=== PATIENT | female | born 1980 | race African-American/Black ===

== ENCOUNTER 2016-05-05 11:05 | Emergency (ER) | payer OTHER, MEDICAID ==
[~2016-05-05 11:05] MED LIST: PREN1MIS10 PO
[2016-05-05 11:39] LABS: HEMATOCRIT 34.9 % (35.0-46.0); MEAN CELL VOLUME 70.3 FL (80.0-100.0); MEAN CORPUSCULAR HEMOGLOBIN 22.8 PG (27.0-34.0); MEAN CORPUSCULAR HGB CONC 32.5 % (32.0-36.0); PLATELET COUNT 392 TH/MM3 (150-450); RED BLOOD COUNT 4.96 MIL/MM3 (4.00-5.30); RED CELL DISTRIBUTION WIDTH 17.2 % (11.6-17.2); WHITE BLOOD COUNT 10.2 TH/MM3 (4.0-11.0)
[2016-05-05 11:43] LABS: REVIEW FLAG FINAL
[2016-05-05 11:53] LABS: BACTERIA, URINE MOD /hpf; BLOOD, URINE NEG (NEG); GLUCOSE,URINE NEG (NEG); KETONE, URINE TRACE mg/dL (NEG); MUCUS URINE FEW /lpf (OCC); NITRITE,URINE NEG (NEG); PH, URINE 6.5 (5.0-8.5); RENAL EPITHELIAL CELLS <1 /hpf; SQUAMOUS EPITHELIAL CELL URINE 8 /hpf (0-5); TRANSITIONAL EPI CELLS, URINE <1 /hpf; URINE COLOR YELLOW (YELLW/STRAW)
[2016-05-05 11:55] LABS: COMMENT (UR) CULTURE INDICATED; CULTURE IF INDICATED CULTURE INDICATED
[2016-05-05 11:58] LABS: ALT (GPT) 31 U/L (10-53); ANION GAP 8 MEQ/L (5-15); AST (GOT) 17 U/L (15-37); BICARBONATE 22.7 MEQ/L (21.0-32.0); BLOOD UREA NITROGEN 6 MG/DL (7-18); CHLORIDE 107 MEQ/L (98-107); GLOMERULAR FILTRATION RATE 177 ML/MIN (>89); POTASSIUM 3.8 MEQ/L (3.5-5.1); SODIUM (NA) 138 MEQ/L (136-145); URIC ACID 2.2 MG/DL (2.6-6.0)
[2016-05-05 11:59] LABS: ALKALINE PHOSPHATASE 80 U/L (45-117); TOTAL BILIRUBIN ADULT 0.2 MG/DL (0.2-1.0)
[2016-05-05] MEDS ORDERED: MACR100C2 PO (13:05)
--- NOTE | 2016-05-05 13:06 | PD ---
HPI Chief Complaint Ratio sent over from Dr. Acevedo's office for PIH evaluation Date Seen: May 05, 2016 Travel History International Travel<30 Days: No Contact w/Intl Traveler<30Days: No History of Present Illness HPI Patient is a 35 week intrauterine followed by Dr. Acevedo for care presents as a referral from his office for evaluation of elevated blood pressure. Patient denies any problems at this time no bleeding leakage of fluid or contractions. She has had elevated blood pressures over the last week or 2 recently had a 24-hour urine protein was within normal limits. She denies visual changes blurry vision spots of her eyes she did have a mild headache yesterday but that went away. She denies right upper quadrant pain significant swelling her baby is active and heart rate tracing is reactive no contractions seen Para: 0 : 1 History Past Medical History Medical History: Denies Significant Hx Social History Alcohol Use: No Tobacco Use: No Substance Abuse: No Allergies-Medications (Allergen,Severity, Reaction): Uncoded Allergies: crawfish (Allergy, Severe, Anaphylaxis, 12/21/14) pollen (Allergy, Mild, ITCH, 12/05/12) Home Meds Reported Medications Vit W/ Ferrous Fumara (One A Day Womens 28-0.8 & 223 mg)1 Mis Mis1 Tab PO DAILY 04/02/16 Review of Systems General / Constitutional: No: Fever, Weight Gain, Chills, Other Physical Exam Narrative GENERAL: Well-nourished, well-developed patient. SKIN: Warm and dry. HEAD: Normocephalic and atraumatic. EYES: No scleral icterus. No injection or drainage. ENT: No nasal drainage noted. Mucous membranes pink. Airway patent. NECK: Supple, trachea midline. No JVD. CARDIOVASCULAR: Regular rate and rhythm without murmurs, gallops, or rubs. RESPIRATORY: Breath sounds equal bilaterally. No accessory muscle use. BREASTS: Bilateral exam showed no masses , no retractions, no nipple discharge. ABDOMEN/GI: Abdomen soft, non-tender, bowel sounds present, no rebound, no guarding Gravid to [36-] weeks size Fundal Height: [36 cm-] GENITOURINARY: External Genitalia: intact and normal in appearance BUS glands: [-] Cervix: [-]not checked Dilatation: [-] Effacement: [-] Station: [-] Presentation: [-] Membranes: [intact ] Uterine Contractions: [-none] FHT's: Category: [1-] Baseline: [-144] Reactive: [-yes] Variability: [-mod] Decels: [none-] EXTREMITIES: No cyanosis or edema. BACK: Nontender without obvious deformity. No CVA tenderness. NEUROLOGICAL: Awake and alert. Motor and sensory grossly within normal limits. Five out of 5 muscle strength in all muscle groups. Normal speech. Data Data Orders Vital Signs (Adult) .ON ADMISSION (05/05/16 11:21) ^ Labor Status (05/05/16 11:21) Urinalysis - C+S If Indicated (05/05/16 11:21) Cbc No Diff, Includes Plts (05/05/16 11:21) Comprehensive Metabolic Panel (05/05/16 11:21) Uric Acid (05/05/16 11:21) Urine Culture (05/05/16 11:20) Labs Laboratory Tests Test 05/05/16 11:20 White Blood Count 10.2 Red Blood Count 4.96 Hemoglobin 11.3 Hematocrit 34.9 Mean Corpuscular Volume 70.3 Mean Corpuscular Hemoglobin 22.8 Mean Corpuscular Hemoglobin 32.5 Concent Red Cell Distribution Width 17.2 Platelet Count 392 Mean Platelet Volume 8.7 Urine Color YELLOW Urine Turbidity HAZY Urine pH 6.5 Urine Specific [place] 1.015 Urine Protein 30 Urine Glucose (UA) NEG Urine Ketones TRACE Urine Occult Blood NEG Urine Nitrite NEG Urine Bilirubin NEG Urine Urobilinogen LESS THAN 2.0 Urine Leukocyte Esterase LARGE Urine RBC 4 Urine WBC 7 Urine Squamous Epithelial 8 Cells Urine Transitional Epithelial <1 Cells Urine Renal Epithelial Cells <1 Urine Bacteria MOD Urine Mucus FEW Microscopic Urinalysis Comment CULTURE INDICATED Sodium Level 138 Potassium Level 3.8 Chloride Level 107 Carbon Dioxide Level 22.7 Anion Gap 8 Blood Urea Nitrogen 6 Creatinine 0.48 Estimat Glomerular Filtration 177 Rate Random Glucose 106 Uric Acid 2.2 Calcium Level 8.8 Total Bilirubin 0.2 Aspartate Amino Transf 17 (AST/SGOT) Alanine Aminotransferase 31 (ALT/SGPT) Alkaline Phosphatase 80 Total Protein 7.6 Albumin 3.0 Date/Time Procedure Status Source Growth 05/05/16 11:20 Urine Culture Received Urine Clean Catch Pending [facility] Medical Record Reviewed: No Interpretation(s) is 35 week intrauterine sent over from Dr Guadarrama office for PIH evaluation. They had several pressures in the office that were elevated we do not know that number however here on OB ED her blood pressures been within normal limits in the 130/70-80 range. Urinalysis shows only 1+ protein. Also the urine showed high leukocyte esterase with white cells and bacteria, this consistent with low-grade UTI. PIH lab all within normal limits. NST is reactive Plan this [facility] follow-up Dr. Acevedo for repeat evaluation this week, plan for patient to begin Macrobid 100 twice a day for a week due to urinalysis findings, she is to increase oral fluids and decrease salt intake Diagnosis Diagnosis: Primary Impression: Gestational hypertension w/o significant proteinuria in 3rdtrimester Additional Impression: UTI (urinary tract infection) during Disposition: 01 DISCHARGE HOME Condition: Stable Scripts Nitrofurantoin Monohydrate Macrocrystals (Macrobid)100 Mg [id number] Mg PO BID #14 CAP Ref 0 Prov:Marino Damon II, MD 05/05/16 Marino Damon II, MD May 05, 2016 13:06
== END 2016-05-05 13:21 | disposition home or self-care (01) ==
LOC: HOBED 11:05
DX: O13.3 Gestational [pregnancy-induced] hypertension without significant proteinuria, third trimester (principal); Z3A.35 35 weeks gestation of pregnancy
CPT/HCPCS: 36415; 59025; 80053; 81001; 84550; 85027; 87086

== ENCOUNTER 2016-05-12 10:32 | Emergency (ER) | payer OTHER, MEDICAID ==
[~2016-05-12] VITALS: Ht 167.6 cm; Wt 122.9 kg
[2016-05-12] VITALS (7 sets, daily range): BP systolic 133–158; BP diastolic 77–94; PULSE 87–104; RESP 18; TEMP 98.6
[~2016-05-12 10:32] MED LIST changes: +MACR100C2 PO
--- NOTE | 2016-05-12 11:51 | PD ---
HPI Chief Complaint Increased blood pressure Date Seen: May 12, 2016 Time Seen: 11:30 Travel History International Travel<30 Days: No Contact w/Intl Traveler<30Days: No Known Affected Area: No History of Present Illness HPI This is a 59-year-old at 36 weeks and 3 days of gestation, EDC 06/06/16, patient was seen in the office today and then sent to OB ED for evaluation of gestational hypertension. Patient with history of gestational hypertension and gestational diabetes, she is scheduled to be delivered at 37 weeks, today the patient denies headaches, visual disturbances, and epigastric pain. Blood pressure measurements in OB ED is 133/83, 142/83, 143/77. Patient recently had a 24-hour urine protein which was negative for preeclampsia. Patient reports presence of movements, denies contractions, vaginal bleeding, leakage of fluids. care is with Dr. Acevedo. course is significant for obesity, gestational hypertension, advanced maternal age and gestational diabetes. Para: 0 : 1 Miscarriage: 0 : 0 History Past Medical History Narrative Medical Obesity, gestational diabetes, gestational hypertension Obstetric History Obstetric History Primigravida Past Surgical History Narrative Surgical Denies Surgical History: No Previous Surgery Family History Narrative Family History Paternal grandmother with diabetes and hypertension. Maternal grandmother with bone cancer and multiple myeloma. Mother has hypertension. Social History Alcohol Use: No Tobacco Use: No Substance Abuse: No Allergies-Medications (Allergen,Severity, Reaction): Uncoded Allergies: crawfish (Allergy, Severe, Anaphylaxis, 12/21/14) pollen (Allergy, Mild, ITCH, 12/05/12) Home Meds Active Scripts Nitrofurantoin Monohydrate Macrocrystals (Macrobid)100 Mg [id number] Mg PO BID #14 CAP Ref 0 Prov:Marino Damon II, MD 05/05/16 Reported Medications Vit W/ Ferrous Fumara (One A Day Womens 28-0.8 & 223 mg)1 Mis Mis1 Tab PO DAILY 04/02/16 Review of Systems Except as stated in HPI: all other systems reviewed are Neg Cardiovascular: Other (increased blood pressure) Physical Exam Narrative GENERAL: Well-nourished, well-developed patient. SKIN: Warm and dry. HEAD: Normocephalic and atraumatic. EYES: No scleral icterus. No injection or drainage. ENT: No nasal drainage noted. Mucous membranes pink. Airway patent. NECK: Supple, trachea midline. No JVD. CARDIOVASCULAR: Regular rate and rhythm without murmurs, gallops, or rubs. RESPIRATORY: Breath sounds equal bilaterally. No accessory muscle use. BREASTS: Bilateral exam showed no masses , no retractions, no nipple discharge. ABDOMEN/GI: Abdomen soft, gravid, non-tender, bowel sounds present, no rebound, no guarding Gravid to 36 weeks size Fundal Height: 36 cm GENITOURINARY: External Genitalia: intact and normal in appearance BUS glands: Normal Cervix: Close, long, posterior Dilatation: Close Effacement: 30% Station: -3 Presentation: Cephalic Membranes: Intact Uterine Contractions: None FHT's: Category: one Baseline: 150 Reactive: Yes Variability: Moderate Decels: None EXTREMITIES: No cyanosis or edema. BACK: Nontender without obvious deformity. No CVA tenderness. NEUROLOGICAL: Awake and alert. Motor and sensory grossly within normal limits. Five out of 5 muscle strength in all muscle groups. Normal speech. Data Data Vital Signs Reviewed: Yes Orders Vital Signs (Adult) [id number] AWAKE (05/12/16 11:24) ^ Heart (05/12/16 11:24) Activity Oob Ad Loida (05/12/16 11:24) Complete Blood Count With Diff (05/12/16 11:24) Uric Acid (05/12/16 11:24) Urinalysis - C+S If Indicated (05/12/16 11:24) Comprehensive Metabolic Panel (05/12/16 11:24) Ldh Serum (05/12/16 11:24) Us Ob Bpp Wo Nst (05/12/16 ) MDM Diagnosis Diagnosis: Primary Impression: 36 weeks gestation of Additional Impression: Gestational hypertension w/o significant proteinuria in 3rdtrimester Disposition: 01 DISCHARGE HOME Condition: Stable Patient Instructions: Early Labor Signs (ED), Movement (ED), General Instructions, Preeclampsia (ED) Additional Instructions: Urinalysis shows protein is 30H, positive ketones, and presence of a white cell count consistent with urinary tract infection. We will give patient intravenous ceftriaxone and IV bolus, patient is given a jug and a prescription for 24-hour urine collection for protein and creatinine, she is instructed to return return to labor and delivery if she has headaches, visual disturbances, blurry vision, epigastric pain, contractions, cramping, leakage of fluids, vaginal bleeding, decreased movement. Drink plenty of fluids. Monitor kick counts. Keep office appointment as scheduled. Departure Forms: Tests/Procedures Bipin Rodriguez MD May 12, 2016 11:51
[2016-05-12 12:19] LABS: AUTOMATED NEUTROPHIL # 4.8 TH/MM3 (1.8-7.7); BASOPHIL # 0.1 TH/MM3 (0-0.2); BASOPHIL % 0.9 % (0.0-2.0); EOSINOPHIL % 0.3 % (0.0-4.0); HEMATOCRIT 35.6 % (35.0-46.0); LYMPHOCYTE # 2.6 TH/MM3 (1.0-4.8); MEAN CELL VOLUME 69.9 FL (80.0-100.0); MEAN CORPUSCULAR HEMOGLOBIN 22.9 PG (27.0-34.0); MEAN CORPUSCULAR HGB CONC 32.7 % (32.0-36.0); MONO % 7.8 % (0.0-8.0); PLATELET COUNT 387 TH/MM3 (150-450); RED BLOOD COUNT 5.09 MIL/MM3 (4.00-5.30); RED CELL DISTRIBUTION WIDTH 17.7 % (11.6-17.2); WHITE BLOOD COUNT 8.1 TH/MM3 (4.0-11.0)
[2016-05-12 12:22] LABS: HEMO FLAGS AUTO DIFF
[2016-05-12 12:28] LABS: BACTERIA, URINE MANY /hpf; BLOOD, URINE TRACE (NEG); COMMENT (UR) CULTURE INDICATED; CULTURE IF INDICATED CULTURE INDICATED; GLUCOSE,URINE NEG (NEG); KETONE, URINE 40 mg/dL (NEG); MUCUS URINE FEW /lpf (OCC); NITRITE,URINE NEG (NEG); PH, URINE 6.5 (5.0-8.5); SQUAMOUS EPITHELIAL CELL URINE 16 /hpf (0-5); TRANSITIONAL EPI CELLS, URINE 2 /hpf; URINE COLOR YELLOW (YELLW/STRAW)
[2016-05-12 12:39] LABS: ANION GAP 10 MEQ/L (5-15); AST (GOT) 14 U/L (15-37); BICARBONATE 21.6 MEQ/L (21.0-32.0); BLOOD UREA NITROGEN 5 MG/DL (7-18); CHLORIDE 103 MEQ/L (98-107); GLOMERULAR FILTRATION RATE 165 ML/MIN (>89); POTASSIUM 3.6 MEQ/L (3.5-5.1); SODIUM (NA) 135 MEQ/L (136-145); URIC ACID 3.2 MG/DL (2.6-6.0)
[2016-05-12 12:42] LABS: ALKALINE PHOSPHATASE 93 U/L (45-117); ALT (GPT) 24 U/L (10-53); LDH SERUM 143 U/L (84-246); TOTAL BILIRUBIN ADULT 0.3 MG/DL (0.2-1.0)
[2016-05-12 12:53] LABS: PLATELET ESTIMATE SMEAR NORMAL (NORMAL); SCAN/DIFF AUTO DIFF CONFIRMED
[2016-05-12 12:54] LABS: PLATELET MORPHOLOGY NORMAL (NORMAL)
[2016-05-12] MEDS ORDERED: cefTRIAXone INJ 2,000 MG in SODIUM CHLORIDE 0.9% INJ 100 ML IV ONE (13:00)
[2016-05-12] MEDS ORDERED: SODIUM CHLOR 0.9% 1000 ML INJ 1,000 ML IV ONE (13:00)
== END 2016-05-12 13:18 | disposition home or self-care (01) ==
LOC: HOBED 10:32
DX: O24.419 Gestational diabetes mellitus in pregnancy, unspecified control (principal); O23.43 Unspecified infection of urinary tract in pregnancy, third trimester; B95.2 Enterococcus as the cause of diseases classified elsewhere; Z3A.36 36 weeks gestation of pregnancy
CPT/HCPCS: 59025; 76819; 80053; 81001; 82570; 83615; 84156; 84550; 85025; 87077; 87086; 87186

== ENCOUNTER 2016-05-17 19:45 | Inpatient (IN) | payer OTHER, MEDICAID ==
[~2016-05-17] VITALS: Ht 167.6 cm; Wt 122.9 kg
[2016-05-17] MEDS ORDERED: LACTATED RINGER'S 1000 ML BOLUS IV PRN (20:15)
[2016-05-17] MEDS ORDERED: ONDANSETRON HCL 4 MG/2 ML VIAL IV PRN (20:15)
[2016-05-17] MEDS ORDERED: LIDOCAINE HCL 1% 50 ML VIAL INFIL PRN (20:15)
[2016-05-17] MEDS ORDERED: NS 1000 ML IV PRN (20:15)
[2016-05-17] MEDS ORDERED: MINERAL OIL 10 ML VIAL TOP PRN (20:15)
[2016-05-17] MEDS ORDERED: CITRIC ACID-SODIUM CITRATE LIQ 30 ML UDC PO SCH (20:15)
[2016-05-17] MEDS ORDERED: PENICILLIN G POT 5,000,000 UNITS/NS 100 ML (Mini-Bag Plus) IV ONE ×2 (20:15)
[2016-05-17] MEDS ORDERED: NS 500 ML BOLUS IV PRN (20:15)
[2016-05-17] MEDS ORDERED: LIDOCAINE HCL 1% 50 ML VIAL I-DERMAL PRN (20:15)
[2016-05-17] MEDS: LACTATED RINGER'S 1000 ML IV SCH ×2 (20:15→22:36)
[2016-05-17] MEDS ORDERED: OXYTOCIN 30 UNITS 500ML PREMIX IV ONE (20:15)
[2016-05-17] MEDS ORDERED: MISOPROSTOL 25 MCG SUPP VAGINAL ONE (20:30)
[2016-05-17] MEDS ORDERED: ZOLPIDEM TARTRATE 10 MG TAB PO PRN (20:30)
[2016-05-17 22:02] VITALS: BP 137/81; PULSE 89
[2016-05-17 22:15] VITALS: RESP 18
[2016-05-17 22:19] LABS: AUTOMATED NEUTROPHIL # 5.7 TH/MM3 (1.8-7.7); BASOPHIL # 0.1 TH/MM3 (0-0.2); BASOPHIL % 0.7 % (0.0-2.0); EOSINOPHIL % 0.2 % (0.0-4.0); HEMATOCRIT 33.9 % (35.0-46.0); HEMO FLAGS AUTO DIFF; LYMPHOCYTE # 2.6 TH/MM3 (1.0-4.8); MEAN CORPUSCULAR HEMOGLOBIN 22.3 PG (27.0-34.0); MEAN CORPUSCULAR HGB CONC 31.9 % (32.0-36.0); MONO % 8.9 % (0.0-8.0); NEUT % 62.2 % (16.0-70.0); PLATELET COUNT 320 TH/MM3 (150-450); RED BLOOD COUNT 4.85 MIL/MM3 (4.00-5.30); RED CELL DISTRIBUTION WIDTH 18.1 % (11.6-17.2); WHITE BLOOD COUNT 9.1 TH/MM3 (4.0-11.0)
[2016-05-17 22:43] LABS: BACTERIA, URINE RARE /hpf; BLOOD, URINE TRACE (NEG); COMMENT (UR) CULT NOT INDICATED; CULTURE IF INDICATED CULT NOT INDICATED; GLUCOSE,URINE 150 mg/dL (NEG); KETONE, URINE NEG (NEG); NITRITE,URINE NEG (NEG); PH, URINE 6.5 (5.0-8.5); SQUAMOUS EPITHELIAL CELL URINE 6 /hpf (0-5); URINE COLOR YELLOW (YELLW/STRAW)
[2016-05-17 22:45] LABS: ALT (GPT) 17 U/L (10-53); ANION GAP 9 MEQ/L (5-15); AST (GOT) 8 U/L (15-37); BICARBONATE 22.8 MEQ/L (21.0-32.0); BLOOD UREA NITROGEN 8 MG/DL (7-18); CHLORIDE 108 MEQ/L (98-107); GLOMERULAR FILTRATION RATE 140 ML/MIN (>89); POTASSIUM 3.4 MEQ/L (3.5-5.1); SODIUM (NA) 140 MEQ/L (136-145); URIC ACID 3.7 MG/DL (2.6-6.0)
[2016-05-17 22:48] LABS: ALKALINE PHOSPHATASE 80 U/L (45-117); TOTAL BILIRUBIN ADULT 0.2 MG/DL (0.2-1.0)
[2016-05-17 22:50] LABS: OVALOCYTES 1+ (NORMAL); SCAN/DIFF AUTO DIFF CONFIRMED
[2016-05-18] VITALS (12 sets, daily range): BP systolic 132–153; BP diastolic 74–97; PULSE 85–109; RESP 16–20; TEMP 98–99.1; O2SAT 98–99
[2016-05-18] MEDS ORDERED: MISOPROSTOL 25 MCG SUPP - repeat dose VAGINAL PRN (00:30)
[2016-05-18] MEDS ORDERED: PENICILLIN G POT 2,500,000 UNITS/NS 100 ML IV SCH ×4 (00:30→12:00)
[2016-05-18] MEDS ORDERED: DINOPROSTONE 10 MG VAG INSERT VAGINAL PRN (04:30)
[2016-05-18] MEDS ORDERED: OXYTOCIN 30 UNITS/NS 500ML PREMIX IV SCH (05:00)
[2016-05-18] MEDS: LACTATED RINGER'S 1000 ML IV SCH (05:11)
[2016-05-18] MEDS ORDERED: PENICILLIN G POT 5,000,000 UNITS/NS 100 ML (Mini-Bag Plus) IV ONE ×2 (08:00)
--- NOTE | 2016-05-18 10:29 | MH ---
cc: Randi GARZA MD DATE OF ADMISSION: 05/17/2016 REASON FOR ADMISSION 1. Preeclampsia at 37-weeks and 1 day, for delivery. HISTORY OF PRESENT ILLNESS Ms. Abrams is a 35-year-old black female, para 0-0-0-0 whose early ultrasound and dates put her at 37 weeks and 1 day. She was noted to be pre-eclamptic for the last several weeks and we put her to bed rest until 37 weeks. She came in last night to have induction, however, her tracing did not look reactive enough to consider Cytotec or Cervidil. We watched her overnight there has been no Dcels whatsoever, but there has also not been any Acels. We did a biophysical profile on her this morning which was good. Her cervix was long, thick, closed and firm and because of the strip I am not comfortable in augmenting her in anyway. We will proceed with a primary . I have discussed this with the patient, the risks and benefits. She agrees to proceed. PAST OB HISTORY She is para 0-0-0-0. She is pre-eclamptic with proteinuria. Her lab work looks normal. She has GBS positive and she is also gestational diabetic, controlled with diet. She also is advanced maternal age and morbid obesity. PAST WRIST LINER HISTORY Negative. PAST SURGICAL HISTORY Negative. PAST MEDICAL HISTORY Remarkable for obesity. SOCIAL HISTORY She does not smoke, drink or take drugs. FAMILY HISTORY Family history is remarkable for heart disease, hypertension. REVIEW OF SYSTEMS She denies any scotoma or headaches. She has no shortness of breath or chest pain. She reports good movement. She denies any rupture of membranes, bleeding. She denies any right upper quadrant pain. PHYSICAL EXAMINATION GENERAL: Her physical exam reveals a well-developed, well-nourished female, in no acute distress. VITAL SIGNS: Her blood pressure is 138/87. Her respirations are 16, pulse is 91. Her temperature is 98.3. HEENT: Normocephalic, atraumatic. NECK: Supple. Trachea is in the midline. No thyromegaly or adenopathy. CHEST: Chest is clear to auscultation. HEART: Heart has a regular rate and rhythm without murmur. ABDOMEN: The abdomen is gravid, nontender. The fetus appears normal size. PELVIC: External genitalia is normal, vagina is clean. The cervix is long, closed, thick, firm, posterior. EXTREMITIES: She has got a small amount of generalized swelling and +2 swelling in her lower extremities. r ASSESSMENT/PLAN 1. Intrauterine at 37 weeks 1 day. She has a unfavorable strip to augment her labor so we will proceed with the primary section. 2. Preeclampsia. She has proteinuria but her liver functions look normal. Will follow her for now, I do not think she needs magnesium and we will go ahead and do a because her cervix was so unfavorable and the strip does not look good enough to augment. 3. Gestational diabetes. She is on a diet, her sugar was okay. Her sugars have been borderline the last portion of the . 4. Advanced maternal age that is noted. 5. Positive GBS. Will go ahead and give her 2 grams of Ancef before the surgery. R. MD JAYLON More/MITCHELL /9:55 AM /10:11 AM
[2016-05-18] MEDS ORDERED: OXYTOCIN 10 UNIT/ML AMP ONE (11:13)
[2016-05-18] MEDS ORDERED: LACTATED RINGER'S 1000 ML IV ONE (11:15)
[2016-05-18] MEDS ORDERED: ceFAZolin 2 GM PREMIX 50 ML IV SCH (11:15)
[2016-05-18] MEDS ORDERED: CITRIC ACID-SODIUM CITRATE LIQ 30 ML UDC PO SCH (11:15)
[2016-05-18] MEDS ORDERED: LACTATED RINGER'S 1000 ML IV SCH (12:00)
[2016-05-18] MEDS ORDERED: EPIDURAL-DIPHENHYDRAMINE HCL 50 MG CAP PO PRN (13:00)
[2016-05-18] MEDS ORDERED: EPIDURAL-NALOXONE HCL 0.4 MG/ML AMP IV PRN (13:00)
[2016-05-18] MEDS ORDERED: EPIDURAL-DIPHENHYDRAMINE HCL 50 MG/ML VIAL IV PUSH PRN (13:00)
[2016-05-18] MEDS ORDERED: EPIDURAL-DO NOT ADMINISTER ANTICOAGULANTS XX PRN (13:00)
[2016-05-18] MEDS ORDERED: EPIDURAL-NO SYSTEMIC NARCOTICS XX PRN (13:00)
[2016-05-18] MEDS ORDERED: MORPHINE SULFATE PF 5 MG/10 ML VIAL ONE (14:36)
[2016-05-18] MEDS ORDERED: ONDANSETRON HCL 4 MG/2 ML VIAL ONE (14:36)
[2016-05-18] MEDS ORDERED: ceFAZolin INJ 1,000 MG VIAL ONE (14:37)
[2016-05-18] MEDS ORDERED: OXYTOCIN 30 UNITS-500ML PREMIX 500 ML IV ONE ×2 (14:45)
[2016-05-18] MEDS ORDERED: ACETAMINOPHEN 1000 MG/100 ML VIAL IV ONE (14:45)
[2016-05-18] MEDS ORDERED: SODIUM CHLORIDE 0.9% FLUSH 5 ML FLUSH IV PRN (14:45)
[2016-05-18] MEDS ORDERED: LACTATED RINGER'S 1000 ML INJ 1,000 ML IV SCH (19:39)
[2016-05-18] MEDS: DOCUSATE SODIUM 50 MG/SENNA 8.6 MG TAB PO PRN (20:07)
[2016-05-18] MEDS: IBUPROFEN 600 MG TAB PO PRN (20:07)
[2016-05-18] MEDS ORDERED: SODIUM CHLORIDE 0.9% FLUSH 5 ML FLUSH IV SCH (21:00)
[2016-05-18] MEDS ORDERED: ONDANSETRON HCL 4 MG/2 ML VIAL IV PUSH PRN (21:00)
[2016-05-19] VITALS (7 sets, daily range): BP systolic 122–155; BP diastolic 85–102; PULSE 93–106; RESP 15–20; TEMP 97.9–99; O2SAT 99
[2016-05-19] MEDS: oxyCODONE/ACETAMINOPHEN 5 MG/325 MG TAB PO PRN ×5 (00:25→21:48)
[2016-05-19] MEDS ORDERED: OXYTOCIN 30 UNITS-500ML PREMIX 500 ML IV PRN (00:45)
[2016-05-19] MEDS: IBUPROFEN 600 MG TAB PO PRN ×5 (02:29→21:48)
[2016-05-19 06:02] LABS: AUTOMATED NEUTROPHIL # 7.1 TH/MM3 (1.8-7.7); BASOPHIL % 0.4 % (0.0-2.0); EOSINOPHIL % 0.1 % (0.0-4.0); HEMATOCRIT 31.1 % (35.0-46.0); LYMPH % 26.1 % (9.0-44.0); LYMPHOCYTE # 2.9 TH/MM3 (1.0-4.8); MEAN CELL VOLUME 71.2 FL (80.0-100.0); MEAN CORPUSCULAR HEMOGLOBIN 22.9 PG (27.0-34.0); MEAN CORPUSCULAR HGB CONC 32.2 % (32.0-36.0); MONO % 9.6 % (0.0-8.0); NEUT % 63.8 % (16.0-70.0); PLATELET COUNT 312 TH/MM3 (150-450); RED BLOOD COUNT 4.37 MIL/MM3 (4.00-5.30); RED CELL DISTRIBUTION WIDTH 18.4 % (11.6-17.2); WHITE BLOOD COUNT 11.1 TH/MM3 (4.0-11.0)
[2016-05-19 06:06] LABS: HEMO FLAGS AUTO DIFF
[2016-05-19 06:36] LABS: ANION GAP 10 MEQ/L (5-15); AST (GOT) 14 U/L (15-37); BICARBONATE 23.6 MEQ/L (21.0-32.0); BLOOD UREA NITROGEN 4 MG/DL (7-18); CHLORIDE 107 MEQ/L (98-107); GLOMERULAR FILTRATION RATE 186 ML/MIN (>89); POTASSIUM 3.3 MEQ/L (3.5-5.1); SODIUM (NA) 141 MEQ/L (136-145)
[2016-05-19 06:39] LABS: ALKALINE PHOSPHATASE 66 U/L (45-117); ALT (GPT) 15 U/L (10-53); TOTAL BILIRUBIN ADULT 0.3 MG/DL (0.2-1.0)
[2016-05-19 07:36] LABS: PLATELET ESTIMATE SMEAR NORMAL (NORMAL); PLATELET MORPHOLOGY NORMAL (NORMAL); SCAN/DIFF AUTO DIFF CONFIRMED
--- NOTE | 2016-05-19 09:11 | HHI.OB ---
Subjective Post Operative Day: 1 Objective Vitals/I&O Vital Signs Date Time Temp Pulse Resp B/P Pulse Ox O2 Delivery O2 Flow Rate FiO2 05/19/16 07:57 99.0 18 05/19/16 07:57 100 155/94 05/19/16 06:50 122/85 05/19/16 06:50 93 17 05/19/16 05:40 105 20 148/102 05/19/16 04:00 15 05/19/16 02:30 18 05/19/16 01:25 106 144/99 05/19/16 00:00 97.9 105 20 99 05/19/16 00:00 153/98 05/18/16 22:00 18 05/18/16 20:00 98.5 109 20 152/96 98 05/18/16 16:20 99.1 92 18 05/18/16 16:19 152/96 05/18/16 15:38 93 17 139/74 99 05/18/16 15:25 99 05/18/16 15:25 85 18 153/95 Result Diagram: 05/19/1644305/19/164 Objective Remarks GENERAL: Well-nourished, well-developed patient. CARDIOVASCULAR: Regular rate and rhythm without murmurs, gallops, or rubs. RESPIRATORY: Breath sounds equal bilaterally. No accessory muscle use. ABDOMEN/GI: Abdomen soft, non-tender, bowel sounds present. Incision: dressing, Clean, dry and intact. Fundus: Firm, non-tender at umbilicus. GENITOURINARY: Light to moderate bleeding. EXTREMITIES: No cyanosis or edema, non-tender, without signs of DVT. Medications and IVs Current Medications Medications (Trade) Dose Ordered Sig/Ko Route Start Time Stop Time Status Last Admin (Lr 1000 ml Inj) 1,000 ml @ 100 mls/hr Q10H IV 05/18/16 19:39 05/19/16 15:38 05/18/16 20:08 (NS Flush) 2 ml BID IV 05/18/16 21:00 (NS Flush) 2 ml UNSCH PRN IV 05/18/16 14:45 (Mylicon Chew) 80 mg QID PRN PO 05/18/16 14:45 (Motrin) 600 mg Q6H PRN PO 05/18/16 14:45 05/19/16 02:29 (Percocet 5-325 Mg) 1 tab Q4H PRN PO 05/18/16 14:45 05/19/16 04:54 (Percocet 5-325 Mg) 2 tab Q4H PRN PO 05/18/16 14:45 (Leighann-Colace) 2 tab Q12H PRN PO 05/18/16 14:45 05/18/16 20:07 (M-M-R Ii Inj) 0.5 ml ONCE ONCE SQ 05/19/16 16:00 05/19/16 16:01 (Boostrix Inj) 0.5 ml ONCE ONCE IM 05/19/16 16:00 05/19/16 16:01 (Zofran Inj) 4 mg Q6H PRN IV PUSH 05/18/16 21:00 Miscellaneous Information NO SYSTEMIC NARCOTICS TO BE GIVEN FO... UNSCH PRN XX 05/18/16 13:00 05/19/16 12:59 (Narcan Inj) 0.4 mg UNSCH PRN IV 05/18/16 13:00 05/19/16 12:59 (Benadryl Inj) 25 mg Q6H PRN IV PUSH 05/18/16 13:00 05/19/16 12:59 (Benadryl) 50 mg Q6H PRN PO 05/18/16 13:00 05/19/16 12:59 Miscellaneous Information ALL NURSING DEPARTMENTS UNSCH PRN XX 05/18/16 13:00 05/19/16 12:59 Assessment/Plan Problem List: (1) S/P primary low transverse Plan: routine (2) Preeclampsia Plan: monitor bp's, labs (3) Gestational diabetes Plan: check labs Assessment and Plan POD #1 pt doing well bp 140's-150's/90's. will continue to monitor labs good,hgb A1c pending bonding with pain well managed with oral pain mediation pt to shower today and remove dressing routine Discharge Planning consider dc in 2 days Thao Mishra May 19, 2016 09:11
[2016-05-19] MEDS ORDERED: DIPHTH/TETANUS/ACEL PERTUSSIS (BOOSTER) 0.5 ML VIAL/PFS IM ONE (16:00)
[2016-05-19] MEDS ORDERED: MEASLES, MUMPS, RUBELLA VACCINE 0.5 ML VIAL SQ ONE (16:00)
[2016-05-19 16:04] LABS: HEMOGLOBIN A1a 1.2 %; HEMOGLOBIN A1b 1.6 %; HEMOGLOBIN Ao 85.4 %; HEMOGLOBIN LA1C 1.5 %; HEMOGLOBIN P3 3.4 %
[2016-05-19] MEDS: DOCUSATE SODIUM 50 MG/SENNA 8.6 MG TAB PO PRN (21:49)
[2016-05-19] MEDS: SIMETHICONE 80 MG CHEWABLE TAB PO PRN (21:50)
[2016-05-20] MEDS: oxyCODONE/ACETAMINOPHEN 5 MG/325 MG TAB PO PRN ×4 (02:07→18:30)
[2016-05-20 03:00] VITALS: RESP 16
[2016-05-20] MEDS: IBUPROFEN 600 MG TAB PO PRN ×3 (06:05→18:29)
[2016-05-20] MEDS: SIMETHICONE 80 MG CHEWABLE TAB PO PRN (12:08)
[2016-05-20] MEDS: DOCUSATE SODIUM 50 MG/SENNA 8.6 MG TAB PO PRN (12:08)
--- NOTE | 2016-05-20 16:32 | HHI.OB ---
Subjective Post Operative Day: 2 Objective Vitals/I&O Vital Signs Date Time Temp Pulse Resp B/P Pulse Ox O2 Delivery O2 Flow Rate FiO2 05/20/16 03:00 16 05/19/16 23:00 18 Result Diagram: 05/19/1644305/19/16443 Objective Remarks GENERAL: Well-nourished, well-developed patient. CARDIOVASCULAR: Regular rate and rhythm without murmurs, gallops, or rubs. RESPIRATORY: Breath sounds equal bilaterally. No accessory muscle use. ABDOMEN/GI: Abdomen soft, non-tender, bowel sounds present. Incision: Clean, dry and intact. Fundus: Firm,non-tender at umbilicus. GENITOURINARY: Light to moderate bleeding. EXTREMITIES: No cyanosis or edema, non-tender, without signs of DVT. Medications and IVs Current Medications Medications (Trade) Dose Ordered Sig/Ko Route Start Time Stop Time Status Last Admin (NS Flush) 2 ml BID IV 05/18/16 21:00 (NS Flush) 2 ml UNSCH PRN IV 05/18/16 14:45 (Mylicon Chew) 80 mg QID PRN PO 05/18/16 14:45 05/20/16 12:08 (Motrin) 600 mg Q6H PRN PO 05/18/16 14:45 05/20/16 12:09 (Percocet 5-325 Mg) 1 tab Q4H PRN PO 05/18/16 14:45 05/20/16 06:06 (Percocet 5-325 Mg) 2 tab Q4H PRN PO 05/18/16 14:45 05/20/16 12:09 (Leighann-Colace) 2 tab Q12H PRN PO 05/18/16 14:45 05/20/16 12:08 (Zofran Inj) 4 mg Q6H PRN IV PUSH 05/18/16 21:00 Assessment/Plan Problem List: (1) S/P primary low transverse Plan: routine (2) Preeclampsia Plan: monitor bp's, labs (3) Gestational diabetes Plan: check labs Assessment and Plan POD #2 pt doing well bp 140's-150's/90's. will continue to monitor hgb A1c 5.7 bonding with infant pain well managed with oral pain mediation routine Discharge Planning dc home tomorrow Thao Mishra May 20, 2016 16:32
[2016-05-21] MEDS: IBUPROFEN 600 MG TAB PO PRN ×2 (00:05→06:33)
[2016-05-21] MEDS: DOCUSATE SODIUM 50 MG/SENNA 8.6 MG TAB PO PRN (00:05)
[2016-05-21] MEDS: oxyCODONE/ACETAMINOPHEN 5 MG/325 MG TAB PO PRN ×2 (00:05→06:33)
[2016-05-21] MEDS ORDERED: IBUP-232 PO (08:11)
[2016-05-21] MEDS ORDERED: OXYC1TAB63 PO (08:11)
--- NOTE | 2016-05-21 09:18 | HHI.DCPOC ---
Discharge Care Plan Diagnosis: (1) Preeclampsia (2) S/P primary low transverse (3) Gestational diabetes (4) Anemia Your Health Problems Are: delivery Additional Problems daily iron once you are no longer taking pain medication Report Symptoms to Your Doctor -Temperate above 100.5 degrees -Redness, of incision or excessive or foul smelling drainage -Unusual pain or calf pain -Increased vaginal bleeding -Painful or difficulty urinating -Feelings of extreme sadness or anxiety after 2 weeks Goals to Promote Your Health * To prevent worsening of your condition and complications * To maintain your health at the optimal level Directions to Meet Your Goals Take your medications as prescribed Follow your dietary instruction Follow activity as directed Ensure plenty of rest for recovery Drink fluids for hydration Keep your appointments as scheduled Take your immunizations and boosters as scheduled If your symptoms worsen call your PCP, if no PCP go to Urgent Care Center or Emergency Room Smoking is Dangerous to Your Health. Avoid second hand smoke Call the 24-hour crisis hotline for domestic abuse at Thao Mishra May 21, 2016 09:18
--- NOTE | 2016-05-21 09:22 | HHI.OB ---
Subjective Post Operative Day: 3 Objective Result Diagram: 05/19/16 0444 05/19/164 Objective Remarks GENERAL: Well-nourished, well-developed patient. CARDIOVASCULAR: Regular rate and rhythm without murmurs, gallops, or rubs. RESPIRATORY: Breath sounds equal bilaterally. No accessory muscle use. ABDOMEN/GI: Abdomen soft, non-tender, bowel sounds present. Incision: Clean, dry and intact. Fundus: Firm,non-tender at umbilicus. GENITOURINARY: Light to moderate bleeding. EXTREMITIES: No cyanosis or edema, non-tender, without signs of DVT. Medications and IVs Current Medications Medications (Trade) Dose Ordered Sig/Ko Route Start Time Stop Time Status Last Admin (NS Flush) 2 ml BID IV 05/18/16 21:00 (NS Flush) 2 ml UNSCH PRN IV 05/18/16 14:45 (Mylicon Chew) 80 mg QID PRN PO 05/18/16 14:45 05/20/16 12:08 (Motrin) 600 mg Q6H PRN PO 05/18/16 14:45 05/21/16 06:33 (Percocet 5-325 Mg) 1 tab Q4H PRN PO 05/18/16 14:45 05/21/16 00:05 (Percocet 5-325 Mg) 2 tab Q4H PRN PO 05/18/16 14:45 05/21/16 06:33 (Leighann-Colace) 2 tab Q12H PRN PO 05/18/16 14:45 05/21/16 00:05 (Zofran Inj) 4 mg Q6H PRN IV PUSH 05/18/16 21:00 Assessment/Plan Problem List: (1) S/P primary low transverse Plan: routine (2) Preeclampsia Plan: monitor bp's, labs (3) Anemia Plan: daily oral iron pp Assessment and Plan POD #3 pt doing well bp 140's-150's/90's, denies visual changes or epigastric pain will continue to monitor bonding with infant pain well managed with oral pain mediation will take daily oral iron once she is no longer taking pain medication routine Discharge Planning dc home today Thao Mishra May 21, 2016 09:22
--- NOTE | 2016-05-21 09:32 | HHI.DS ---
Admission Date May 17, 2016 at 19:45 Discharge Date: May 21, 2016 Admitting Diagnosis 37 weeks gestation pre-eclampsia ama morbid obesity gestational diabetes Diagnosis: (1) Gestational diabetes Diagnosis: Secondary (2) Anemia Diagnosis: Secondary (3) Preeclampsia Diagnosis: Principal (4) S/P primary low transverse Diagnosis: Principal Delivery Date: May 18, 2016 : Primary Reason: nonreassuring strip : Female Brief History 37 weeks gestation, ama, pre-eclampsia, morbid obesity, gestational diabetes nonreassuring strip Hospital Course 37 weeks gestation, ama, pre-eclampsia, morbid obesity, gestational diabetes nonreassuring strip primary c section routine Pt Condition on Discharge: Good Discharge Disposition: Discharge Home Discharge Instructions Diet Instructions: As Tolerated, No Restrictions Additional Diet Instructions: Drink at least 8 - 16 oz bottles of water a day Activities You Can Perform: Shower Only-No Bath Activities to Avoid: Prolonged Standing, Strenuous Activity, Sexual Activity Additional Activity Instruc.: No driving until off pain medications Do not lift anything heavier than your baby in an infant carrier Follow up Referrals: [facility] - 1 Week @ [facility] New Medications: Ibuprofen (Ibuprofen) 600 Mg Tab 600 MG PO Q6H Pain Management #30 Ref 2 TAB Oxycodone-Acetaminophen (Oxycodone-Acetaminophen) 5-325 mg Tab 1 TAB PO Q4H moderate pain #30 TAB Continued Medications: Vit W/ Ferrous Fumara (One A Day Womens 28-0.8 & 223 mg) 1 Mis Mis 1 TAB PO DAILY Thao Mishra May 21, 2016 09:32
[2016-05-21] MEDS ORDERED: MEASLES, MUMPS, RUBELLA VACCINE 0.5 ML VIAL SQ ONE (11:00)
--- NOTE | 2016-05-22 07:50 | MP ---
cc: GREGMADISON DATE OF SURGERY: 05/18/2016 PREOPERATIVE DIAGNOSIS 1. Intrauterine at 37+ weeks. 2. Preeclampsia. 3. Non-reassuring strip. POSTOPERATIVE DIAGNOSIS 1. Intrauterine at 37+ weeks. 2. Preeclampsia. 3. Non-reassuring strip. PROCEDURE Primary low transverse section. ANESTHESIA Spinal. SURGEON Randi Acevedo MD FINDINGS A normal female , good Apgars. Normal tubes. Normal ovaries. Normal uterus. The baby's name is Janes Pendleton. COMPLICATIONS None. COUNTS Correct. ESTIMATED BLOOD LOSS 600 cc. FLUIDS Crystalloid. CONDITION The patient tolerated the procedure well and went to the recovery room in good condition. INDICATION FOR PROCEDURE This lady was brought in Wednesday for induction at 37+ weeks for preeclampsia. She had been on bedrest. She had been spilling protein but she never reached severe. When she came in her strip was not good enough to give Cytotec or Cervidil so we watched her overnight. I reviewed the entire strip, got a biophysical profile. The biophysical profile was normal, however, the strip remained without significant accelerations. There were no decelerations. At this point we felt that the baby was somewhat compromised and decided to proceed with primary . PROCEDURE IN DETAIL The patient was taken to the operating room, identified by name band and verbally. She was given a spinal anesthetic. A Perkins catheter was inserted. She was prepped and draped for section. A Pfannenstiel incision was taken down to the fascia. The fascia was taken off the rectus muscle by blunt and sharp dissection. The peritoneum was entered under direct vision without complication. The incision was extended with care to avoid the urinary bladder. A bladder blade was placed and a bladder flap created over the lower uterine segment which was well-developed. The uterus was then scored in a transverse manner along the lower uterine segment and taken down in the midline until the uterine cavity was entered. The incision was extended with the surgeon's finger. The vertex was grasped and delivered through the incision without difficulty. The hypopharynx and nasopharynx were suctioned. The remainder of the was delivered. The cord was doubly clamped and cut and the handed to the resuscitation team that was present. Cord blood was obtained. The placenta was delivered manually without difficulty. The uterus was curetted twice with a wet lap. The uterine incision was repaired with 2-0 Vicryl a running locking fashion, the second layer imbricating the first. The cul-de-sac and gutters were cleaned of blood and debris with a large amount of irrigation. The uterus was delivered back into the abdomen. The incision was again inspected and was hemostatic. The rectus muscles were re-approximated with 0 Vicryl in an interrupted fashion. The fascia was repaired with 0 Vicryl from lateral to midline bilaterally in a running fashion. The subcutaneous tissue was repaired with 3-0 Vicryl. The skin was repaired with 4-0 Monocryl in a subcuticular manner. Steri-Strips were applied. The wound was sterilely dressed. She tolerated the procedure well and went to the recovery room in good condition. R. Madison Acevedo MD RJV/MIKE /2:43 PM /7:42 AM
== END 2016-05-21 11:15 | disposition home or self-care (01) | DRG 766 ==
LOC: H2EB 19:45 → H1EA 05-18 15:56
PROVIDERS: ADMIT Obstetrics & Gynecology; ATTEND Obstetrics & Gynecology
PROC: 10D00Z1 Extraction of Products of Conception, Low, Open Approach (ICD-10-PCS; principal; 2016-05-17)
DX: O14.94 Unspecified pre-eclampsia, complicating childbirth (principal); E66.01 Morbid (severe) obesity due to excess calories; Z37.0 Single live birth; O99.02 Anemia complicating childbirth; O24.429 Gestational diabetes mellitus in childbirth, unspecified control; D64.9 Anemia, unspecified; O99.824 Streptococcus B carrier state complicating childbirth; O99.214 Obesity complicating childbirth; Z3A.37 37 weeks gestation of pregnancy; O09.519 Supervision of elderly primigravida, unspecified trimester
CPT/HCPCS: 59025; 76815; 76819; 80053; 81001; 83036; 84550; 85025; 86900; 86901; 90707; 90715; J0131; J0690; J2274; J2405; J2590; J7120

== ENCOUNTER 2016-06-11 00:36 | Emergency (ER) | payer OTHER, MEDICAID ==
[~2016-06-11] VITALS: Ht 167.6 cm; Wt 113.0 kg
[~2016-06-11 00:36] MED LIST changes: +IBUP-232 PO; -MACR100C2 PO; +OXYC1TAB63 PO
[2016-06-11 00:38] VITALS: BP 192/117; PULSE 66; RESP 16; TEMP 98.1; O2SAT 99
[2016-06-11 03:44] LABS: BACTERIA, URINE RARE /hpf; BLOOD, URINE NEG (NEG); COMMENT (UR) CULT NOT INDICATED; CULTURE IF INDICATED CULT NOT INDICATED; GLUCOSE,URINE NEG (NEG); KETONE, URINE NEG (NEG); NITRITE,URINE NEG (NEG); PH, URINE 6.5 (5.0-8.5); RENAL EPITHELIAL CELLS <1 /hpf; SQUAMOUS EPITHELIAL CELL URINE 2 /hpf (0-5); TRANSITIONAL EPI CELLS, URINE <1 /hpf; URINE COLOR YELLOW (YELLW/STRAW)
[2016-06-11] MEDS ORDERED: ONDANSETRON HCL 4 MG/2 ML VIAL IVP ONE (04:15)
[2016-06-11] MEDS ORDERED: SODIUM CHLORIDE 0.9% FLUSH 5 ML FLUSH IVF PRN (04:15)
[2016-06-11] MEDS ORDERED: MORPHINE SULFATE 8 MG/ML INJ IV PUSH ONE (04:15)
--- NOTE | 2016-06-11 04:17 | PD ---
HPI Chief Complaint: Flank/Kidney Pain Time Seen by Provider: 04:06 Travel History International Travel<30 days: No Contact w/Intl Traveler<30days: No Traveled to known affect area: No History of Present Illness HPI 35-year-old female 1 para 1 who underwent section approximately 2 weeks prior arrives complaining of 3 days of right flank pain. Onset gradual. There is no radiation. Pain is slightly worse with palpation. She was preeclamptic while . She has been hypertensive since. She's had no nausea vomiting diarrhea. She's had no fever. She has no urinary complaint. Trace vaginal spotting occurred yesterday as expected following C- section. PFSH Past Medical History Arthritis: No Asthma: No Autoimmune Disease: No Anxiety: No Depression: No Heart Rhythm Problems: No Cancer: No Cardiovascular Problems: No High Cholesterol: No Chest Pain: No Congestive Heart Failure: No COPD: No Cerebrovascular Accident: No Diabetes: Yes (WHEN ) Patient Takes Glucophage: No Diminished Hearing: No Endocrine: No Gastrointestinal Disorders: Yes (gestational diabaties) GERD: Yes Genitourinary: No Headaches: No Hiatal Hernia: No Hypertension: Yes Immune Disorder: No Implanted Vascular Access Dvce: No Kidney Stones: No Musculoskeletal: No Neurologic: No Psychiatric: No Reproductive: No Respiratory: No Immunizations Current: Yes Migraines: No Renal Failure: No Seizures: Yes Sickle Cell Disease: No Sleep Apnea: No Thyroid Disease: No Ulcer: No ?: Not LMP: DELIVERED 05/18/16 : 1 Para: 1 Miscarriage: 0 : 0 Past Surgical History AICD: No Arteriovenous Shunt: No Section: Yes Insulin Pump: No Joint Replacement: No Social History Alcohol Use: No Tobacco Use: No Substance Use: No Allergies-Medications (Allergen,Severity, Reaction): Uncoded Allergies: crawfish (Allergy, Severe, Anaphylaxis, 12/21/14) pollen (Allergy, Mild, ITCH, 12/05/12) Reported Meds & Prescriptions Reported Meds & Active Scripts Active Oxycodone-Acetaminophen 5-325 mg Tab 1 Tab PO Q4H Reported Labetalol (Labetalol HCl) 300 Mg Tab 300 Mg PO BID Review of Systems Except as stated in HPI: all other systems reviewed are Neg General / Constitutional: No: Fever Genitourinary: Positive: Flank Pain Physical Exam Narrative GENERAL: 35-year-old female pleasant no acute distress SKIN: Warm and dry. HEAD: Atraumatic. Normocephalic. EYES: Pupils equal and round. No scleral icterus. No injection or drainage. ENT: No nasal bleeding or discharge. Mucous membranes pink and moist. NECK: Trachea midline. No JVD. CARDIOVASCULAR: Regular rate and rhythm. No murmur appreciated. RESPIRATORY: No accessory muscle use. Clear to auscultation. Breath sounds equal bilaterally. GASTROINTESTINAL: Abdomen soft, non-tender, nondistended. Hepatic and splenic margins not palpable. MUSCULOSKELETAL: No obvious deformities. No clubbing. No cyanosis. No edema. NEUROLOGICAL: Awake and alert. No obvious cranial nerve deficits. Motor grossly within normal limits. Normal speech. PSYCHIATRIC: Appropriate mood and affect; insight and judgment normal. Data Data Last Documented VS Vital Signs Date Time Temp Pulse Resp B/P Pulse Ox O2 Delivery O2 Flow Rate FiO2 06/11/16 05:38 69 18 152/87 98 Room Air 06/11/16 00:38 98.1 Hypertension noted and is of concern blood pressure at 4:15 AM is 178/107 Orders Urinalysis - C+S If Indicated (06/11/16 03:07) Complete Blood Count With Diff (06/11/16 04:14) Comprehensive Metabolic Panel (06/11/16 04:14) Lipase (06/11/16 04:14) Iv Access Insert/Monitor (06/11/16 04:14) Ecg Monitoring (06/11/16 04:14) Oximetry (06/11/16 04:14) Ondansetron Inj (Zofran Inj) (06/11/16 04:15) Sodium Chloride 0.9% Flush (Ns Flush) (06/11/16 04:15) Morphine Inj (Morphine Inj) (06/11/16 04:15) Labs Laboratory Tests Test 06/11/16 06/11/16 03:11 04:30 Urine Color YELLOW Urine Turbidity CLEAR Urine pH 6.5 Urine Specific [place] 1.014 Urine Protein NEG mg/dL Urine Glucose (UA) NEG mg/dL Urine Ketones NEG mg/dL Urine Occult Blood NEG Urine Nitrite NEG Urine Bilirubin NEG Urine Urobilinogen LESS THAN 2.0 MG/DL Urine Leukocyte Esterase LARGE Urine RBC LESS THAN 1 /hpf Urine WBC 5 /hpf Urine Squamous Epithelial 2 /hpf Cells Urine Transitional Epithelial <1 /hpf Cells Urine Renal Epithelial Cells <1 /hpf Urine Bacteria RARE /hpf Microscopic Urinalysis Comment CULT NOT INDICATED White Blood Count 7.6 TH/MM3 Red Blood Count 4.78 MIL/MM3 Hemoglobin 11.0 GM/DL Hematocrit 34.1 % Mean Corpuscular Volume 71.3 FL Mean Corpuscular Hemoglobin 23.1 PG Mean Corpuscular Hemoglobin 32.4 % Concent Red Cell Distribution Width 18.7 % Platelet Count 402 TH/MM3 Mean Platelet Volume 8.7 FL Neutrophils (%) (Auto) 51.2 % Lymphocytes (%) (Auto) 40.9 % Monocytes (%) (Auto) 5.4 % Eosinophils (%) (Auto) 1.5 % Basophils (%) (Auto) 1.0 % Neutrophils # (Auto) 3.9 TH/MM3 Lymphocytes # (Auto) 3.1 TH/MM3 Monocytes # (Auto) 0.4 TH/MM3 Eosinophils # (Auto) 0.1 TH/MM3 Basophils # (Auto) 0.1 TH/MM3 CBC Comment AUTO DIFF Differential Comment AUTO DIFF CONFIRMED Ovalocytes 1+ Acanthocytes OCC Sodium Level 139 MEQ/L Potassium Level 3.5 MEQ/L Chloride Level 105 MEQ/L Carbon Dioxide Level 27.2 MEQ/L Anion Gap 7 MEQ/L Blood Urea Nitrogen 11 MG/DL Creatinine 0.65 MG/DL Estimat Glomerular Filtration 125 ML/MIN Rate Random Glucose 111 MG/DL Calcium Level 8.5 MG/DL Total Bilirubin 0.3 MG/DL Aspartate Amino Transf 11 U/L (AST/SGOT) Alanine Aminotransferase 15 U/L (ALT/SGPT) Alkaline Phosphatase 68 U/L Total Protein 7.7 GM/DL Albumin 3.5 GM/DL Lipase 216 U/L [facility] Medical Decision Making Medical Screen Exam Complete: Yes Emergency Medical Condition: Yes Medical Record Reviewed: Yes Differential Diagnosis Constipation, Gastritis, Acute Cholecystitis, Biliary Colic, Pancreatitis, DAUGHERTY , Hepatitis, Bowel Obstruction, Cystitis, Mesenteric Ischemia, AAA, Appendicitis , Renal Stone/Hydronephrosis, GERD, perforated viscous Narrative Course CBC & BMP Diagram 06/11/16 04:30 LFTs: normal Lipase: normal UA: No hematuria, cystitis considered unlikely The patient is resting comfortably and feels better, is alert and in no distress. The patients results and examination findings were discussed. The repeat examination is unremarkable and benign. The history, exam, diagnostic testing, and current condition do not suggest any significant pathology to warrant further testing, continued ED treatment, admission, or surgical evaluation at this point. The vital signs have been stable. The patient does not have uncontrollable pain, intractable vomiting, or other significant symptoms. The patient's condition is stable and appropriate for discharge. The patient will pursue further outpatient evaluation with a primary care physician or other designated or consulting physician as indicated in the discharge instructions. The patient expressed understanding and was agreeable with this plan. Diagnosis Primary Impression: Flank pain Referrals: Randi Acevedo MD 2 days Additional Instructions: You have a choice when it comes to health care, and we are glad that you chose [facility]. Hopefully, we have met your expectations on today's visit. You are welcome to return to [facility] at any time, as we are committed to meeting the health care needs of our community. Med/Other Pt SpecificInfo: No Change to Meds Disposition: 01 DISCHARGE HOME Condition: Stable Hugo Anderson MD Jun 11, 2016 04:17
[2016-06-11 04:19] VITALS: BP 178/107; PULSE 74; RESP 20; O2SAT 99
[2016-06-11] MEDS ORDERED: LABE300T PO (04:19)
[2016-06-11 04:55] LABS: AUTOMATED NEUTROPHIL # 3.9 TH/MM3 (1.8-7.7); BASOPHIL # 0.1 TH/MM3 (0-0.2); EOSINOPHIL # 0.1 TH/MM3 (0-0.4); EOSINOPHIL % 1.5 % (0.0-4.0); HEMATOCRIT 34.1 % (35.0-46.0); LYMPH % 40.9 % (9.0-44.0); LYMPHOCYTE # 3.1 TH/MM3 (1.0-4.8); MEAN CELL VOLUME 71.3 FL (80.0-100.0); MEAN CORPUSCULAR HEMOGLOBIN 23.1 PG (27.0-34.0); MEAN CORPUSCULAR HGB CONC 32.4 % (32.0-36.0); MONO % 5.4 % (0.0-8.0); NEUT % 51.2 % (16.0-70.0); PLATELET COUNT 402 TH/MM3 (150-450); RED BLOOD COUNT 4.78 MIL/MM3 (4.00-5.30); RED CELL DISTRIBUTION WIDTH 18.7 % (11.6-17.2); WHITE BLOOD COUNT 7.6 TH/MM3 (4.0-11.0)
[2016-06-11 04:59] LABS: HEMO FLAGS AUTO DIFF
[2016-06-11 05:06] LABS: ALT (GPT) 15 U/L (10-53); ANION GAP 7 MEQ/L (5-15); AST (GOT) 11 U/L (15-37); BICARBONATE 27.2 MEQ/L (21.0-32.0); BLOOD UREA NITROGEN 11 MG/DL (7-18); CHLORIDE 105 MEQ/L (98-107); GLOMERULAR FILTRATION RATE 125 ML/MIN (>89); POTASSIUM 3.5 MEQ/L (3.5-5.1); SODIUM (NA) 139 MEQ/L (136-145)
[2016-06-11 05:08] LABS: ALKALINE PHOSPHATASE 68 U/L (45-117); TOTAL BILIRUBIN ADULT 0.3 MG/DL (0.2-1.0)
[2016-06-11 05:38] VITALS: BP 152/87; PULSE 69; RESP 18; O2SAT 98
[2016-06-11 05:49] LABS: OVALOCYTES 1+ (NORMAL)
[2016-06-11 05:50] LABS: ACANTHOCYTES OCC (NORMAL); SCAN/DIFF AUTO DIFF CONFIRMED
== END 2016-06-11 06:20 | disposition home or self-care (01) ==
LOC: NEPE 00:36
DX: R10.10 Upper abdominal pain, unspecified (principal); I10 Essential (primary) hypertension
CPT/HCPCS: 80053; 81001; 83690; 85025; 96374; 96375; 99284; J2270; J2405

== ENCOUNTER 2016-12-19 23:03 | Emergency (ER) | payer OTHER, MEDICAID ==
[~2016-12-19] VITALS: Ht 165.1 cm; Wt 120.0 kg
[~2016-12-19 23:03] MED LIST changes: -IBUP-232 PO; +LABE300T PO; -PREN1MIS10 PO
[2016-12-19 23:05] VITALS: BP 169/102; PULSE 85; RESP 16; TEMP 98.2; O2SAT 100
[2016-12-20] MEDS ORDERED: SODIUM CHLOR 0.9% 1000 ML INJ 1,000 ML IV SCH (00:26)
[2016-12-20] MEDS ORDERED: SODIUM CHLORIDE 0.9% FLUSH 10 ML FLUSH IV FLUSH PRN (00:30)
[2016-12-20 01:32] LABS: AUTOMATED NEUTROPHIL # 4.2 TH/MM3 (1.8-7.7); BASOPHIL # 0.1 TH/MM3 (0-0.2); BASOPHIL % 1.3 % (0.0-2.0); EOSINOPHIL # 0.1 TH/MM3 (0-0.4); EOSINOPHIL % 1.5 % (0.0-4.0); HEMATOCRIT 35.4 % (35.0-46.0); HEMO FLAGS DIFF FINAL; LYMPH % 31.2 % (9.0-44.0); LYMPHOCYTE # 2.1 TH/MM3 (1.0-4.8); MEAN CORPUSCULAR HEMOGLOBIN 22.9 PG (27.0-34.0); MEAN CORPUSCULAR HGB CONC 32.3 % (32.0-36.0); MONO % 5.4 % (0.0-8.0); NEUT % 60.6 % (16.0-70.0); PLATELET COUNT 353 TH/MM3 (150-450); RED BLOOD COUNT 4.99 MIL/MM3 (4.00-5.30); RED CELL DISTRIBUTION WIDTH 18.1 % (11.6-17.2); WHITE BLOOD COUNT 6.9 TH/MM3 (4.0-11.0)
[2016-12-20] MEDS ORDERED: METF500T PO (01:35)
--- NOTE | 2016-12-20 01:35 | PD ---
HPI Chief Complaint: Syncope/Near-Syncope Time Seen by Provider: 01:07 Travel History International Travel<30 days: No Contact w/Intl Traveler<30days: No Traveled to known affect area: No History of Present Illness HPI Patient is a 36-year-old female who presents to emergency room with complaints of lightheadedness and dizziness. Reports that symptoms began this afternoon, denies any vision changes, denies any nausea or vomiting. Denies any chest pain or shortness of breath. Patient denies any trauma to the head or neck. Patient reports that she has been trying to maintain hydration - denies abdominal pain. No fever/chills. No other c/o. PFSH Past Medical History Arthritis: No Asthma: No Autoimmune Disease: No Anxiety: No Depression: No Heart Rhythm Problems: No Cancer: No Cardiovascular Problems: No High Cholesterol: No Chest Pain: No Congestive Heart Failure: No COPD: No Cerebrovascular Accident: No Diabetes: Yes (WHEN ) Diminished Hearing: No Endocrine: No Gastrointestinal Disorders: Yes (gestational diabaties) GERD: Yes Genitourinary: No Headaches: No Hiatal Hernia: No Hypertension: Yes Immune Disorder: No Implanted Vascular Access Dvce: No Kidney Stones: No Musculoskeletal: No Neurologic: No Psychiatric: No Reproductive: No Respiratory: No Immunizations Current: Yes Migraines: No Renal Failure: No Seizures: Yes Sickle Cell Disease: No Sleep Apnea: No Thyroid Disease: No Ulcer: No : 1 Para: 1 Miscarriage: 0 : 0 Past Surgical History AICD: No Arteriovenous Shunt: No Section: Yes Insulin Pump: No Joint Replacement: No Social History Alcohol Use: No Tobacco Use: No Substance Use: No Allergies-Medications (Allergen,Severity, Reaction): Uncoded Allergies: crawfish (Allergy, Severe, Anaphylaxis, 12/21/14) pollen (Allergy, Mild, ITCH, 12/05/12) Reported Meds & Prescriptions Reported Meds & Active Scripts Active Reported Metformin (Metformin HCl) 500 Mg Tab 500 Mg PO BIDPC With meals Review of Systems General / Constitutional: No: Fever Eyes: No: Visual changes HENT: Positive: Lightheadedness, No: Headaches Cardiovascular: No: Chest Pain or Discomfort Respiratory: No: Shortness of Breath Gastrointestinal: No: Abdominal Pain Genitourinary: No: Dysuria Musculoskeletal: No: Pain Skin: No Rash Neurologic: Positive: Dizziness, No: Weakness, Headache Psychiatric: No: Depression Endocrine: No: Polydipsia Hematologic/Lymphatic: No: Easy Bruising Physical Exam Narrative GENERAL: NAD, Nontoxic SKIN: Focused skin assessment warm/dry. HEAD: Atraumatic. Normocephalic. EYES: Pupils equal and round. No scleral icterus. No injection or drainage. ENT: No nasal bleeding or discharge. Mucous membranes pink and moist. NECK: Trachea midline. No JVD. CARDIOVASCULAR: Regular rate and rhythm. No murmur appreciated. RESPIRATORY: No accessory muscle use. Clear to auscultation. Breath sounds equal bilaterally. GASTROINTESTINAL: Abdomen soft, non-tender, nondistended. Hepatic and splenic margins not palpable. MUSCULOSKELETAL: No obvious deformities. No clubbing. No cyanosis. No edema. NEUROLOGICAL: Awake and alert. No obvious cranial nerve deficits. Motor grossly within normal limits. Normal speech. CN 2-12 grossly intact with no neurological deficits PSYCHIATRIC: Appropriate mood and affect; insight and judgment normal. Data Data Last Documented VS Vital Signs Date Time Temp Pulse Resp B/P Pulse Ox O2 Delivery O2 Flow Rate FiO2 12/19/16 23:05 98.2 85 16 169/102 100 Room Air Orders Creatine Kinase (Cpk) (12/20/16 00:26) Basic Metabolic Panel (Bmp) (12/20/16 00:26) Complete Blood Count With Diff (12/20/16:26) Urinalysis - C+S If Indicated (12/20/16 00:26) Iv Access Insert/Monitor (12/20/16 00:26) Ecg Monitoring (12/20/16 00:26) Oximetry (12/20/16:26) Sodium Chlor 0.9% 1000 Ml Inj (Ns 1000 M (12/20/16 00:26) Sodium Chloride 0.9% Flush (Ns Flush) (12/20/16 00:30) Ed Urine Pregnancytest Poc (12/20/16 00:26) Orthostatic Vital Signs (12/20/16 01:33) Labs Laboratory Tests Test 12/20/16 00:55 White Blood Count 6.9 TH/MM3 Red Blood Count 4.99 MIL/MM3 Hemoglobin 11.5 GM/DL Hematocrit 35.4 % Mean Corpuscular Volume 71.0 FL Mean Corpuscular Hemoglobin 22.9 PG Mean Corpuscular Hemoglobin 32.3 % Concent Red Cell Distribution Width 18.1 % Platelet Count 353 TH/MM3 Mean Platelet Volume 8.2 FL Neutrophils (%) (Auto) 60.6 % Lymphocytes (%) (Auto) 31.2 % Monocytes (%) (Auto) 5.4 % Eosinophils (%) (Auto) 1.5 % Basophils (%) (Auto) 1.3 % Neutrophils # (Auto) 4.2 TH/MM3 Lymphocytes # (Auto) 2.1 TH/MM3 Monocytes # (Auto) 0.4 TH/MM3 Eosinophils # (Auto) 0.1 TH/MM3 Basophils # (Auto) 0.1 TH/MM3 CBC Comment DIFF FINAL Differential Comment Urine Color YELLOW Urine Turbidity CLEAR Urine pH 6.0 Urine Specific [place] 1.026 Urine Protein TRACE mg/dL Urine Glucose (UA) NEG mg/dL Urine Ketones NEG mg/dL Urine Occult Blood TRACE Urine Nitrite NEG Urine Bilirubin NEG Urine Urobilinogen LESS THAN 2.0 MG/DL Urine Leukocyte Esterase NEG Urine RBC LESS THAN 1 /hpf Urine WBC LESS THAN 1 /hpf Urine Squamous Epithelial 1 /hpf Cells Microscopic Urinalysis Comment CULT NOT INDICATED Sodium Level 140 MEQ/L Potassium Level 3.9 MEQ/L Chloride Level 105 MEQ/L Carbon Dioxide Level 27.6 MEQ/L Anion Gap 7 MEQ/L Blood Urea Nitrogen 12 MG/DL Creatinine 0.84 MG/DL Estimat Glomerular Filtration 92 ML/MIN Rate Random Glucose 117 MG/DL Calcium Level 8.4 MG/DL Total Creatine Kinase 115 U/L MDM Medical Decision Making Medical Screen Exam Complete: Yes Emergency Medical Condition: Yes Interpretation(s) Vital Signs Date Time Temp Pulse Resp B/P Pulse Ox O2 Delivery O2 Flow Rate FiO2 12/19/16 23:05 98.2 85 16 169/102 100 Room Air Differential Diagnosis Differential includes , electrolyte abnormality, dehydration, rhabdomyolysis, UTI Narrative Course Patient is a 36-year-old female who presents to emergency with complaint of lightheaded and dizziness since this afternoon. Patient with no vision changes , no trauma to the head or neck. Patient denies any fevers or chills, no chest pain or shortness of breath. Patient with normal neurologic exam. Plan to obtain blood work, will check orthostatic vs. Will administer IVF. Will monitor on youth nutritional monitor Vital Signs Date Time Temp Pulse Resp B/P Pulse Ox O2 Delivery O2 Flow Rate FiO2 12/19/16 23:05 98.2 85 16 169/102 100 Room Air Laboratory Tests Test 12/20/16 00:55 White Blood Count 6.9 TH/MM3 (4.0-11.0) Red Blood Count 4.99 MIL/MM3 (4.00-5.30) Hemoglobin 11.5 GM/DL (11.6-15.3) Hematocrit 35.4 % (35.0-46.0) Mean Corpuscular Volume 71.0 FL (80.0-100.0) Mean Corpuscular Hemoglobin 22.9 PG (27.0-34.0) Mean Corpuscular Hemoglobin 32.3 % Concent (32.0-36.0) Red Cell Distribution Width 18.1 % (11.6-17.2) Platelet Count 353 TH/MM3 (150-450) Mean Platelet Volume 8.2 FL (7.0-11.0) Neutrophils (%) (Auto) 60.6 % (16.0-70.0) Lymphocytes (%) (Auto) 31.2 % (9.0-44.0) Monocytes (%) (Auto) 5.4 % (0.0-8.0) Eosinophils (%) (Auto) 1.5 % (0.0-4.0) Basophils (%) (Auto) 1.3 % (0.0-2.0) Neutrophils # (Auto) 4.2 TH/MM3 (1.8-7.7) Lymphocytes # (Auto) 2.1 TH/MM3 (1.0-4.8) Monocytes # (Auto) 0.4 TH/MM3 (0-0.9) Eosinophils # (Auto) 0.1 TH/MM3 (0-0.4) Basophils # (Auto) 0.1 TH/MM3 (0-0.2) CBC Comment DIFF FINAL Differential Comment Urine Color YELLOW (YELLW/STRAW) Urine Turbidity CLEAR (CLEAR) Urine pH 6.0 (5.0-8.5) Urine Specific [place] 1.026 (1.002-1.035) Urine Protein TRACE mg/dL (NEG-TRACE) Urine Glucose (UA) NEG mg/dL (NEG) Urine Ketones NEG mg/dL (NEG) Urine Occult Blood TRACE (NEG) Urine Nitrite NEG (NEG) Urine Bilirubin NEG (NEG) Urine Urobilinogen LESS THAN 2.0 MG/DL (LESS THAN 2.0) Urine Leukocyte Esterase NEG (NEG) Urine RBC LESS THAN 1 /hpf (0-3) Urine WBC LESS THAN 1 /hpf (0-5) Urine Squamous Epithelial 1 /hpf (0-5) Cells Microscopic Urinalysis Comment CULT NOT INDICATED Sodium Level 140 MEQ/L (136-145) Potassium Level 3.9 MEQ/L (3.5-5.1) Chloride Level 105 MEQ/L (98-107) Carbon Dioxide Level 27.6 MEQ/L (21.0-32.0) Anion Gap 7 MEQ/L (5-15) Blood Urea Nitrogen 12 MG/DL (7-18) Creatinine 0.84 MG/DL (0.50-1.00) Estimat Glomerular Filtration 92 ML/MIN (>89) Rate Random Glucose 117 MG/DL (74-106) Calcium Level 8.4 MG/DL (8.5-10.1) Total Creatine Kinase 115 U/L (26-192) Patient reevaluated, patient reports that she is feeling much better. Patient has complete resolution of symptoms at this time. Signs and symptoms of when to return to the emergency room was reviewed patient in detail. Patient ambulating in the emergency room with normal gait. She will follow up with her pcp and will return to ER as needed Diagnosis Primary Impression: Lightheadedness Additional Impression: Dizziness Patient Instructions: General Instructions Additional Instructions: Please follow up with your primary care doctor Drink plenty of fluids Return to ER as needed or if symptoms return Disposition: 01 DISCHARGE HOME Condition: Stable Paulina Lopez DO Dec 20, 2016 01:35
[2016-12-20 01:40] LABS: BLOOD, URINE TRACE (NEG); COMMENT (UR) CULT NOT INDICATED; CULTURE IF INDICATED CULT NOT INDICATED; GLUCOSE,URINE NEG (NEG); KETONE, URINE NEG (NEG); NITRITE,URINE NEG (NEG); SQUAMOUS EPITHELIAL CELL URINE 1 /hpf (0-5); URINE COLOR YELLOW (YELLW/STRAW)
[2016-12-20 01:48] LABS: BICARBONATE 27.6 MEQ/L (21.0-32.0); POTASSIUM 3.9 MEQ/L (3.5-5.1)
[2016-12-20 03:17] VITALS: BP_SYST 153; BP_SYST 155; BP_SYST 166; BP_DIAS 89; BP_DIAS 96; BP_DIAS 98
== END 2016-12-20 03:24 | disposition home or self-care (01) ==
LOC: NEPC 23:03
DX: R42 Dizziness and giddiness (principal); I10 Essential (primary) hypertension
CPT/HCPCS: 80048; 81001; 82550; 84703; 85025; 96360; 96361; 99284; J7030